=== PATIENT | female | born 1960 | race Caucasian/White ===

== ENCOUNTER → 2025-06-15 | Outpatient (CLI) | payer MEDICARE, SELFPAY ==
--- NOTE | 2025-06-15 15:01 | CT_ITS ---
PROCEDURE: ABDOMEN/PELVIS WITHOUT CONT 06/15/2025 REASON FOR EXAM: HEMATURIA Microscopic hematuria. TECHNIQUE: Procedure Code: CTABDPEL Modality: CT Procedure: ABDOMEN/PELVIS WITHOUT CONT Noncontrast technique limits evaluation of the abdominal and pelvic viscera. Coronal and Sagittal reconstruction series were provided. One or more dose reduction techniques were used (e.g., Automated exposure control, adjustment of the mA and/or kV according to patient size, use of iterative reconstruction technique). RADIATION DOSE SUMMARY: CTDlvol: 23.3 mGy DLP: 1346.6 mGycm COMPARISON: None. FINDINGS: Lung bases: Mild emphysematous changes. ABDOMEN Liver: Mild fatty infiltration of the liver. Biliary system: Negative. Negative for intrahepatic or extrahepatic ductal dilatation. Gallbladder: Removed . Spleen: Negative. Pancreas: Negative. Adrenals: Negative. Kidneys: Bilateral nonobstructing kidney stones no stones in either ureter. Negative for mass or cysts. Bowel: Moderate increased stool throughout the colon. Diffuse diverticulosis. Negative for small or large-bowel obstruction. Appendix: The appendix is not identified. There is no inflammatory process identified in the right lower quadrant to suggest appendicitis. Vasculature: Mild atherosclerotic vascular calcifications of the abdominal aorta and its branches. Peritoneum / Retroperitoneum: Negative. PELVIS Lymph nodes: Negative for inguinal or iliac adenopathy. Bladder: Urinary bladder negative. Reproductive Organs: Hysterectomy Bones and Soft Tissues: Moderate degenerative changes of the lower lumbar spine. Otherwise age appropriate degenerative changes of the lumbar spine hips and pelvis. CT/Abdomen/Pelvis without Cont IMPRESSION: Nonobstructing nephrolithiasis. Negative for acute intra-abdominal or pelvic pathology. Reading Location: [id number]
== END | disposition home or self-care (01) ==
PROVIDERS: PCP Nurse Practitioner Family; Referring Provider Urology; Visit Provider Urology
DX: R31.9 Hematuria, unspecified (principal)
CPT/HCPCS: 74176